=== PATIENT | female | born 1975 | race Caucasian/White ===

== ENCOUNTER 2017-04-10 20:37 | Emergency (ER) | payer OTHER ==
[~2017-04-10] VITALS: Ht 162.6 cm; Wt 63.2 kg
[2017-04-10 20:43] VITALS: TEMP 36.8; Ht 162.6 cm; Wt 63.2 kg
[2017-04-10] MEDS ORDERED: DEXAMETHASONE SOD INJ 10 MG/ML VIAL IM ONE (21:00)
[2017-04-10] MEDS ORDERED: FAMOTIDINE 20 MG TAB PO ONE (21:00)
[2017-04-10] MEDS ORDERED: CITA40TA12 PO (21:40)
[2017-04-10] MEDS ORDERED: CLR10 PO (21:40)
[2017-04-10] MEDS ORDERED: LEVO88TA PO (21:40)
[2017-04-10 22:31] VITALS: BP 142/88; PULSE 85; O2SAT 99
--- NOTE | 2017-04-11 00:58 | EMERGENCY ROOM VISIT NOTE ---
History Report prepared by Sarahibfco: Marly Cruz Under the Supervision of: Dr. Chris Shields D.O. First contact with patient: 20:46 Chief Complaint: ALLERGIC REACTION Stated Complaint: REACTION TO BLEACH Nursing Triage Summary: Pt reports Bleach splashed on her tonight at work. Pt c/o itching to bilateral arms. "I'm just itching everywhere. I think I do have an allery to Bleach". Pt also reports throat "feels funny" when she swallows History of Present Illness The patient is a 42 year old female who presents to the Emergency Room with complaints of a possible allergic reaction. She reports she was splashed with bleach while emptying the trash at work approximately 1 hour prior to arrival. She complains of itching to her bilateral arms and states "it feels funny when I swallow". She denies any tightening of her airway or difficulty breathing. No trouble swallowing. She notes she has not showered since the incident as her employer told her to go to the ED. Pt denies headache, change in vision, fevers, chest pain, shortness of breath, nausea, and vomiting. 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 A total of 10 systems reviewed and were otherwise negative. Past Medical & Surgical Medical Problems: (1) Seasonal allergies Social History Smoking Status: Current Every Day Smoker Alcohol Use: occasionally Drug Use: none Marital Status: Housing Status: lives with family Occupation Status: employed Current/Historical Medications Scheduled Citalopram Hydrobromide (Celexa), 40 MG PO DAILY Levothyroxine Sodium (Synthroid), 88 MCG PO DAILY Loratadine (Claritin), 10 MG PO DAILY Allergies Coded Allergies: Sulfa Drugs (Verified Allergy, Severe, 10/30/09) EYES SWELL Erythromycin (Verified Allergy, Unknown, 10/30/09) Replaces BENZAMYCIN Penicillins (Verified Allergy, Unknown, 10/30/09) RASH Physical Exam Vital Signs Date Time Temp Pulse Resp B/P (MAP) Pulse Ox O2 Delivery O2 Flow Rate FiO2 04/10/17 22:31 85 18 142/88 99 04/10/17 21:42 78 123/78 100 Room Air 04/10/17 20:45 100 Room Air 04/10/17 20:43 36.8 98 16 136/91 100 Room Air Physical Exam GENERAL: Patient is sitting up in bed, scratching upper body, disheveled, alert , well nourished, no distress, non-toxic EYE EXAM: normal conjunctiva OROPHARYNX: no exudate, no erythema, lips, buccal mucosa, and tongue normal and mucous membranes are moist NECK: supple, no nuchal rigidity, no adenopathy, non-tender LUNGS: Clear to auscultation. Normal chest wall mechanics HEART: no murmurs, S1 normal and S2 normal ABDOMEN: abdomen soft, non-tender, normo-active bowel sounds, no masses, no rebound or guarding. BACK: Back is symmetrical on inspection and there is no deformity, no midline tenderness, no CVA tenderness. SKIN: Multiple scratch stafford throughout back, chest and arms. No rashes and no bruising UPPER EXTREMITIES: upper extremities are grossly normal. LOWER EXTREMITIES: No pitting edema. NEURO EXAM: Normal sensorium, cranial nerves II-XII grossly intact, normal speech, no gross weakness of arms, no gross weakness of legs. Gross sensation intact. Medical Decision & Procedures Medications Administered Medications (Trade) Dose Ordered Sig/Faraz Route Start Time Stop Time Status Last Admin Dose Admin Dexamethasone Sodium Phosphate (Decadron Inj) 10 mg NOW ONCE IM 04/10/17 21:00 04/10/17 21:01 DC 04/10/17 21:11 10 MG Famotidine (Pepcid Tab) 40 mg NOW ONCE PO 04/10/17 21:00 04/10/17 21:01 DC 04/10/17 21:09 40 MG ED Course ED COURSE: Vital signs were reviewed and showed normal vital signs. The patients medical record was reviewed The above diagnostic studies were performed and reviewed. ED treatments and interventions as stated above. 2050: The patient was evaluated in room A2. A complete history and physical examination was performed. 2099: Pepcid 40 mg PO, Decadron Inj 10 mg IM. 2214: Upon reevaluation, the patient is feeling significantly better. I discussed my findings with the patient and she understands and agrees with the treatment plan. Based on the patients age, coexisting illnesses, exam and lab findings the decision to treat as an outpatient was made. The patient remained stable while under my care. The patient appeared well at the time of discharge. Medical Decision Medication Reconciliation: I attest that I have personally reviewed the patient' s current medication list. Blood pressure screening: Patient was found to have normal blood pressure on screening and does not require follow-up. Etiologies such as allergic reaction, anaphylaxis, urticaria, Perez-Vaibhav syndrome, toxic epidermal necrolysis, erythema multiforme, cellulitis, as well as others were entertained. Patient is a 42-year-old female who had a skin exposure to bleach. She has had this before and has had significant itching. She is a same complaints night. No respiratory or oral involvement. She is driving and consequently was not given Benadryl. She was given steroids along with famotidine. She had improvement of her symptoms. She also washed everything off on the ER. She did feel significantly better was discharged to follow with PCP tomorrow. When she gets home she'll take 50 mg of Benadryl. Discussed with Pt concerning signs and symptoms to watch out for. Pt was instructed to follow up with their PCP and discussed with the patient their option to return to the ED at anytime for persistent or worsening symptoms. The appropriate anticipatory guidance and out- patient management, including indications for return to the emergency department , were explained at length to the patient and understood. Impression Primary Impression: Allergic reaction Scribe Attestation The scribe's documentation has been prepared under my direction and personally reviewed by me in its entirety. I confirm that the note above accurately reflects all work, treatment, procedures, and medical decision making performed by me. Departure Information Dispostion Home / Self-Care Referrals Yang Monreal M.D.([facility]) (PCP) Patient Instructions ED Allergic Reaction General Other, My [facility] Additional Instructions Please follow up with your primary care doctor with in the next 24 hours. Any worsening of your symptoms, please return to the ED immediately. This includes shoulder breathing, trouble swallowing, worsening of the rash, or any other concerning signs or symptoms from your standpoint. Please take Benadryl 50 mg orally when you get home. Problem Qualifiers Primary Impression: Allergic reaction Encounter type: initial encounter Qualified Codes: T78.40XA - Allergy, unspecified, initial encounter
== END 2017-04-10 22:32 | disposition home or self-care (01) ==
LOC: C.EDB 20:38 → C.EDA 22:32
DX: T78.40XA Allergy, unspecified, initial encounter (principal); X58.XXXA Exposure to other specified factors, initial encounter; Y92.89 Other specified places as the place of occurrence of the external cause; Y99.0 Civilian activity done for income or pay; J30.2 Other seasonal allergic rhinitis; F17.210 Nicotine dependence, cigarettes, uncomplicated; Z79.899 Other long term (current) drug therapy